=== PATIENT | female | born 1975 | race Caucasian/White ===

== ENCOUNTER → 2023-06-30 | Outpatient (CLI) | payer MEDICAID ==
[2005-02-14 09:00] VITALS: TEMP 96.9
== END ==
LOC: MHCPAIN 14:14
DX: M47.896 Other spondylosis, lumbar region (principal); M96.1 Postlaminectomy syndrome, not elsewhere classified; M46.1 Sacroiliitis, not elsewhere classified
CPT/HCPCS: G0463